=== PATIENT | male | born 1965 | race Caucasian/White ===

== ENCOUNTER 2017-09-02 22:44 | Observation (INO) | payer MEDICAID, OTHER ==
[2017-09-02] MEDS ORDERED: Sodium Chloride 0.9% 2.5 ML Syringe FLUSH PRN (23:06)
[2017-09-02] MEDS ORDERED: Sodium Chloride 0.9% 10 ML Syringe FLUSH PRN (23:06)
[2017-09-02] MEDS ORDERED: Aspirin 81 MG Tab.Chew PO ONE (23:06)
--- NOTE | 2017-09-02 23:11 | EDM.PDOC ---
ED HPI GENERAL MEDICAL PROBLEM - General Chief Complaint: Cardiovascular Problem Stated Complaint: SOB Time Seen by Provider: 09/02/17 22:53 - History of Present Illness INITIAL COMMENTS - FREE TEXT/NARRATIVE: HISTORY AND PHYSICAL: History of present illness: The patient is a 51-year-old male with no stated medical history who presents with an episode of shortness of breath that lasted approximately 5 minutes and occurred approximately 45 minutes ago. According to the patient he is very active on a regular basis and never has chest pain or shortness of breath with activity and he was doing laundry and watching television when he felt like he could not get air in or out for about 5 minutes. He said he has never had an episode like this in the past and has no recent upper respiratory tract infection or any new activities today. He had no chest pain with the episode no abdominal pain no lightheadedness or dizziness but after 5 minutes he started feeling anxious about this because of his father's past medical history. He tells me that his father had CABG 8 done when he was 52 years of age and his grandfather on his father's side also had heart disease. This patient has never had a stress test before and has never had his cholesterol or lipid panel performed. He has no regular provider and he has a history of 20 years of smoking but he has not smoked for the last 1-1/2 months. He says that his been trying to quit and has been very advent about not smoking and today he did have a cigarette. The patient never had nausea vomiting or abdominal pain has been eating and drinking normally. The patient tells me that currently in the ED he is asymptomatic and he feels silly that he came to the ER. He does admit that there was an anxiety component to his shortness of breath but that seemed to kick in after the 5 minutes when he truly was short of breath. Patient denies any chest pain currently and has no leg pain or swelling. For his work he does do a lot of traveling but says he has never had asymmetric leg edema or calf tenderness. The patient did not take any medication prior to coming to the ED. Review of systems: As per history of present illness and below otherwise all systems reviewed and negative. Past medical history: As per history of present illness and as reviewed below otherwise noncontributory. Surgical history: As per history of present illness and as reviewed below otherwise noncontributory. Social history: No reported history of drug or alcohol abuse. Family history: As per history of present illness and as reviewed below otherwise noncontributory. Physical exam: Gen.: Well-developed well-nourished man who is nontoxic and vital signs of been reviewed by me. As I'm speaking with him and evaluating him different parts of the conversation will result in an increase in his heart rate on the monitor which I observed to go as high as 105. He moves all extremities without distress speaks clearly and easily in the ED HEENT: Atraumatic, normocephalic, pupils reactive, negative for conjunctival pallor or scleral icterus, mucous membranes moist, throat clear, neck supple, nontender, trachea midline. Lungs: Clear to auscultation, breath sounds equal bilaterally, chest nontender. No worker breathing or sensory muscle use Heart: S1S2, regular, negative for clicks, rubs, or JVD. Abdomen: Soft, nondistended, nontender. Negative for masses or hepatosplenomegaly. Negative for costovertebral tenderness. Pelvis: Stable nontender. Genitourinary: Deferred. Rectal: Deferred. Extremities: Atraumatic, negative for cords or calf pain. Neurovascular unremarkable. No pedal edema or leg asymmetry Neuro: Awake, alert, oriented. Cranial nerves II through XII unremarkable. Cerebellum unremarkable. Motor and sensory unremarkable throughout. Exam nonfocal. Skin: Normal turgor no evidence of any rashes or lesions overtly and no diaphoresis Diagnostics: EKG CBC CMP INR troponin d-dimer chest x-ray magnesium level Therapeutics: IV O2 monitor aspirin metoprolol XL, Nitropaste 0025: I discussed all testing results with the patient and with our hospitalist Dr. Lilly. We have all decided that the patient merits observation admission and Dr. Lilly would like me to give half an inch of Nitropaste and metoprolol XL 50 mg orally. The patient's blood pressure has persistently stayed at 160s/ 100s. His heart rate has been variable but has not gone over 104 during my evaluation. The patient is aware of my concerns and accepts that and is willing for admission. Impression: Episode of dyspnea, new hypertension, rule out ACS Definitive disposition and diagnosis as appropriate pending reevaluation and review of above. - Related Data Allergies Allergy/AdvReac Type Severity Reaction Status Date / Time No Known Allergies Allergy Verified 09/02/17 23:03 Home Meds: Home Meds . [No Known Home Meds] 07/13/14 [History] Social & Family History - Tobacco Use Smoking Status *Q: Current Every Day Smoker Years of Tobacco use: 15 - Alcohol Use Days Per Week of Alcohol Use: 0 - Recreational Drug Use Recreational Drug Use: No ED ROS GENERAL - Review of Systems Review Of Systems: ROS reveals no pertinent complaints other than HPI. ED EXAM, GENERAL - Physical Exam Exam: See Below (See dictation) Course - Vital Signs Last Recorded V/S: Last Vital Signs Temp 36.2 C 09/02/17 22:49 Pulse 94 09/02/17 23:17 Resp 18 09/02/17 23:17 BP 166/111 H 09/02/17 23:17 Pulse Ox 98 09/02/17 23:17 - Orders/Labs/Meds Orders: Active Orders 24 hr Category Date Time Status Patient Status [ADT] Stat ADT 09/03/17 00:28 Ordered Cardiac Monitoring [RC] . DIRECTED Care 09/02/17 23:05 Active EKG Documentation Completion [RC] STAT Care 09/02/17 23:05 Active Oxygen Therapy, ED [RC] ASDIRECTED Care 09/02/17 23:05 Active Pulse Oximetry [RC] ASDIRECTED Care 09/02/17 23:05 Active Chest 1V Frontal [CR] Stat Exams 09/02/17 23:06 Taken Metoprolol Succinate [Toprol XL] Med 09/03/17 00:30 Once 50 mg PO ONETIME ONE Nitroglycerin [Nitro-Bid 2%] Med 09/03/17 00:28 Once 0.5 gm TOP ONETIME ONE Sodium Chloride 0.9% [Saline Flush] Med 09/02/17 23:06 Active 10 ml FLUSH ASDIRECTED PRN Sodium Chloride 0.9% [Saline Flush] Med 09/02/17 23:06 Active 2.5 ml FLUSH ASDIRECTED PRN Saline Lock Insert [OM.PC] Stat Oth 09/02/17 23:05 Ordered Medication Orders Sodium Chloride (Saline Flush) 10 ml FLUSH ASDIRECTED PRN PRN Reason: Keep Vein Open Sodium Chloride (Saline Flush) 2.5 ml FLUSH ASDIRECTED PRN PRN Reason: Keep Vein Open Labs: Laboratory Tests 09/02/17 09/02/17 09/02/17 Range/Units 22:56 22:56 22:56 WBC 8.88 (4.0-11.0) K/uL RBC 5.20 (4.50-5.90) M/uL Hgb 15.7 (13.0-17.0) g/dL Hct 46.4 (38.0-50.0) % MCV 89.2 (80.0-98.0) fL MCH 30.2 (27.0-32.0) pg MCHC 33.8 (31.0-37.0) g/dL RDW Std Deviation 43.6 (28.0-62.0) fl RDW Coeff of Sharlene 13 (11.0-15.0) % Plt Count 330 (150-400) K/uL MPV 9.20 (7.40-12.00) fL Neut % (Auto) 69.1 (48.0-80.0) % Lymph % (Auto) 22.0 (16.0-40.0) % [place] % (Auto) 7.9 (0.0-15.0) % Eos % (Auto) 0.7 (0.0-7.0) % Baso % (Auto) 0.3 (0.0-1.5) % Neut # (Auto) 6.1 H (1.4-5.7) K/uL Lymph # (Auto) 2.0 (0.6-2.4) K/uL [place] # (Auto) 0.7 (0.0-0.8) K/uL Eos # (Auto) 0.1 (0.0-0.7) K/uL Baso # (Auto) 0.0 (0.0-0.1) K/uL Nucleated RBC % 0.0 /100WBC Nucleated RBCs # 0 K/uL INR 1.01 (0.86-1.11) D-Dimer, Quantitative < 0.19 (0.0-0.52) mg/LFEU Sodium 139 (136-146) mmol/L Potassium 4.0 (3.5-5.1) mmol/L Chloride 105 (98-110) mmol/L Carbon Dioxide 23 (21-31) mmol/L BUN 19 (6.0-23.0) mg/dL Creatinine 1.1 (0.6-1.5) mg/dL Est Cr Clr Drug Dosing 89.79 mL/min Estimated GFR (MDRD) > 60.0 ml/min Glucose 103 (60-110) mg/dL Calcium 9.6 (8.8-10.8) mg/dL Magnesium 1.8 (1.5-2.3) mEq/L Total Bilirubin 0.4 (0.1-1.5) mg/dL AST 23 (5-40) IU/L ALT 29 (8-54) IU/L Alkaline Phosphatase 94 (40-150) Troponin I < 0.10 (0.0-0.29) NG/ML Total Protein 8.6 H (6.0-8.0) g/dL Albumin 4.7 (3.5-5.0) g/dL Globulin 3.9 H (2.0-3.5) g/dL Albumin/Globulin Ratio 1.2 L (1.3-2.8) Meds: Medications Generic Name Dose Route Start Last Admin Trade Name Freq PRN Reason Stop Dose Admin Sodium Chloride 10 ml 09/02/17 23:06 Saline Flush FLUSH ASDIRECTED PRN Keep Vein Open Sodium Chloride 2.5 ml 09/02/17 23:06 Saline Flush FLUSH ASDIRECTED PRN Keep Vein Open Discontinued Medications Generic Name Dose Route Start Last Admin Trade Name Freq PRN Reason Stop Dose Admin Aspirin 324 mg 09/02/17 23:06 09/02/17 23:16 Aspirin PO 09/02/17 23:07 324 mg ONETIME ONE Administration Departure - Departure Time of Disposition: 00:32 Disposition: Refer to Observation Reason for Transfer *Q: Primary PCI Indicated Condition: Good Clinical Impression: Dyspnea Qualifiers: Dyspnea type: other forms of dyspnea Qualified Code(s): R06.09 - Other forms of dyspnea Hypertension Qualifiers: Hypertension type: unspecified Qualified Code(s): I10 - Essential (primary) hypertension Referrals: PCP,None [Primary Care Provider] - Forms: ED Department Discharge - My Orders Last 24 Hours: My Active Orders 09/02/17 23:05 Cardiac Monitoring [RC] . DIRECTED EKG Documentation Completion [RC] STAT Oxygen Therapy, ED [RC] ASDIRECTED Pulse Oximetry [RC] ASDIRECTED Saline Lock Insert [OM.PC] Stat 09/02/17 23:06 Chest 1V Frontal [CR] Stat Sodium Chloride 0.9% [Saline Flush] 10 ml FLUSH ASDIRECTED PRN Sodium Chloride 0.9% [Saline Flush] 2.5 ml FLUSH ASDIRECTED PRN 09/03/17 00:28 Patient Status [ADT] Stat Nitroglycerin [Nitro-Bid 2%] 0.5 gm TOP ONETIME ONE 09/03/17 00:30 Metoprolol Succinate [Toprol XL] 50 mg PO ONETIME ONE - Assessment/Plan Last 24 Hours: My Active Orders 09/02/17 23:05 Cardiac Monitoring [RC] . DIRECTED EKG Documentation Completion [RC] STAT Oxygen Therapy, ED [RC] ASDIRECTED Pulse Oximetry [RC] ASDIRECTED Saline Lock Insert [OM.PC] Stat 09/02/17 23:06 Chest 1V Frontal [CR] Stat Sodium Chloride 0.9% [Saline Flush] 10 ml FLUSH ASDIRECTED PRN Sodium Chloride 0.9% [Saline Flush] 2.5 ml FLUSH ASDIRECTED PRN 09/03/17 00:28 Patient Status [ADT] Stat Nitroglycerin [Nitro-Bid 2%] 0.5 gm TOP ONETIME ONE 09/03/17 00:30 Metoprolol Succinate [Toprol XL] 50 mg PO ONETIME ONE
[2017-09-02 23:29] LABS: CHLORIDE,CL 105 mmol/L (98-110); SODIUM,NA 139 mmol/L (136-146)
[2017-09-03] MEDS ORDERED: Nitroglycerin 2% Oint 1 GM UD Packet TOP ONE (00:28)
[2017-09-03] MEDS ORDERED: Metoprolol Succinate 50 MG Tab.ER PO ONE (00:30)
[2017-09-03] MEDS ORDERED: LORazepam 0.5 MG Tab PO PRN (01:14)
[2017-09-03] MEDS ORDERED: Albuterol/Ipratropium 3.0-0.5 MG/3 ML Neb Soln NEB PRN (01:14)
[2017-09-03] MEDS ORDERED: Sodium Chloride 0.9% 2.5 ML Syringe FLUSH PRN (01:14)
[2017-09-03] MEDS ORDERED: Nitroglycerin 2% Oint 1 GM UD Packet TOP SCH (01:15)
[2017-09-03] MEDS ORDERED: Acetaminophen 325 MG Tab PO PRN (04:21)
[2017-09-03] MEDS ORDERED: Acetaminophen 325 MG Tab ONE (04:37)
[2017-09-03] MEDS ORDERED: Metoprolol Succinate 50 MG Tab.ER PO SCH (09:00)
[2017-09-03] MEDS ORDERED: Aspirin 81 MG Tab.EC PO SCH (09:00)
--- NOTE | 2017-09-03 09:50 | PCM.HP ---
H&P History of Present Illness - General Date of Service: 09/03/17 Admit Problem/Dx: Admission Diagnosis/Problem Admission Diagnosis/Problem Dyspnea Source of Information: Patient - History of Present Illness Initial Comments - Free Text/Narative: 51-year-old male otherwise healthy admitted for rule out ACS. He presented with an episode of shortness of breath that lasted approximately 5 minutes and occurred approximately 45 minutes ago while doing laundry at home. According to the patient he is very active on a regular basis and never has chest pain or shortness of breath with activity and he was doing laundry and watching television when he felt like he could not get air in or out for about 5 minutes. He said he has never had an episode like this in the past and has no recent upper respiratory tract infection or any new activities today. He had no chest pain with the episode no abdominal pain no lightheadedness or dizziness but after 5 minutes he started feeling anxious about this because of his father' s past medical history. He tells me that his father had CABG 8 done when he was 52 years of age and his grandfather on his father's side also had heart disease. This patient has never had a stress test before and has never had his cholesterol or lipid panel performed. He has no regular provider and he has a history of 20 years of smoking but he has not smoked for the last two months. He says that his been trying to quit and has been very worship about not smoking and today he did have a cigarette. The patient never had nausea vomiting or abdominal pain has been eating and drinking normally. In the ED, EKG , CXR< D- dimer negative, troponin x1 negative. He was given aspirin and Lopressor due to elevated blood pressure. He is admitted to rule of ACS. - Related Data Allergies/Adverse Reactions: Allergies Allergy/AdvReac Type Severity Reaction Status Date / Time No Known Allergies Allergy Verified 09/03/17 02:28 Home Medications: Home Meds Aspirin [Halfprin] 81 mg PO DAILY #30 tab.ec 09/03/17 [Rx] Metoprolol Succinate [Toprol XL] 50 mg PO DAILY #30 tab.er 09/03/17 [Rx] Past Medical History - Past Health History Medical/Surgical History: Denies Medical/Surgical History Social & Family History - Family History Cardiac: Reports: [place] Respiratory: Reports: Asthma Oncologic: Reports: Brain, Lung - Tobacco Use Smoking Status *Q: Former Smoker Years of Tobacco use: 20 Packs/Tins Daily: 1 Used Tobacco, but Quit: Yes Month Tobacco Last Used: June 2017 Second Hand Smoke Exposure: No - Caffeine Use Caffeine Use: Reports: Coffee - Alcohol Use Days Per Week of Alcohol Use: 4 Number of Drinks Per Day: 2 Total Drinks Per Week: 8 Date of Last Drink: 09/02/17 Time of Last Drink: 20:00 - Recreational Drug Use Recreational Drug Use: No H&P Review of Systems - Review of Systems: Review Of Systems: See Below General: Reports: No Symptoms HEENT: Reports: No Symptoms Pulmonary: Reports: No Symptoms Cardiovascular: Reports: No Symptoms Gastrointestinal: Reports: No Symptoms Musculoskeletal: Reports: No Symptoms Skin: Reports: No Symptoms Psychiatric: Reports: No Symptoms Neurological: Reports: No Symptoms Exam - Exam Exam: See Below - Vital Signs Vital Signs: Last Vital Signs Temp 97.2 F 09/03/17 08:00 Pulse 71 09/03/17 08:51 Resp 18 09/03/17 08:00 BP 123/81 09/03/17 08:51 Pulse Ox 95 09/03/17 08:00 Weight: 82.4 kg - Exam General: Alert, Oriented HEENT: Conjunctiva Clear, EOMI Neck: Supple, Trachea Midline Lungs: Clear to Auscultation, Normal Respiratory Effort Cardiovascular: Regular Rate, Regular Rhythm GI/Abdominal Exam: Normal Bowel Sounds, Soft Back Exam: Normal Inspection Extremities: Normal Inspection Skin: Warm, Dry, Intact Neurological: Cranial Nerves Intact Psychiatric: Alert, Normal Affect, Normal Mood - Patient Data Lab Results Last 24 hrs: Laboratory Results - last 24 hr 09/03/17 09/03/17 Range/Units 04:42 04:42 Troponin I < 0.10 (0.0-0.29) NG/ML Triglycerides 69 (10-190) mg/dL Cholesterol 217 (131-240) mg/dL LDL Cholesterol, Calc 153 (60-180) mg/dL VLDL Cholesterol 14 (5-55) mg/dL HDL Cholesterol 50 (40-80) mg/dL Cholesterol/HDL Ratio 4.3 (3.3-6.0) Result Diagrams: 09/02/17 22:56 09/02/17 22:56 *Q Meaningful Use (ADM) - VTE *Q VTE Criteria *Q: - Stroke *Q Stroke Criteria *Q: - AMI *Q AMI Criteria *Q: Problem List Initiated/Reviewed/Updated: Yes Orders Last 24hrs: Active Orders 24 hr Category Date Time Status RT Aerosol Therapy [RC] ASDIRECTED Care 09/03/17 01:19 Active Telemetry Monitoring [Cardiac Monitoring] [RC] Q8H Care 09/03/17 00:40 Active Regular Diet [DIET] Diet 09/03/17 Breakfast Active TROPONIN I [CHEM] Q6H Lab 09/03/17 11:00 Ordered Acetaminophen [Tylenol] Med 09/03/17 04:37 Once 650 mg .ROUTE .STK-MED ONE Acetaminophen [Tylenol] Med 09/03/17 04:21 Active 650 mg PO Q4H PRN Albuterol/Ipratropium [DuoNeb 3.0-0.5 MG/3 ML] Med 09/03/17 01:14 Active 3 ml NEB Q4HRRT PRN Aspirin [Halfprin] Med 09/03/17 09:00 Active 81 mg PO DAILY LORazepam [Ativan] Med 09/03/17 01:14 Active 0.5 mg PO Q6H PRN Metoprolol Succinate [Toprol XL] Med 09/03/17 09:00 Active 50 mg PO DAILY Sodium Chloride 0.9% [Saline Flush] Med 09/03/17 01:14 Active 2.5 ml FLUSH ASDIRECTED PRN Code Status [Resuscitation Status] Routine Resus Stat 09/03/17 01:26 Ordered Medication Orders Acetaminophen (Tylenol) 650 mg PO Q4H PRN PRN Reason: Pain Albuterol/Ipratropium (Duoneb 3.0-0.5 Mg/3 Ml) 3 ml NEB Q4HRRT PRN PRN Reason: Wheezing Aspirin (Halfprin) 81 mg PO DAILY [facility] Last Admin: 09/03/17 08:51 Dose: 81 mg Lorazepam (Ativan) 0.5 mg PO Q6H PRN PRN Reason: Anxiety Metoprolol Succinate (Toprol Xl) 50 mg PO DAILY [facility] Last Admin: 09/03/17 08:51 Dose: 50 mg Sodium Chloride (Saline Flush) 10 ml FLUSH ASDIRECTED PRN PRN Reason: Keep Vein Open Sodium Chloride (Saline Flush) 2.5 ml FLUSH ASDIRECTED PRN PRN Reason: Keep Vein Open Sodium Chloride (Saline Flush) 2.5 ml FLUSH ASDIRECTED PRN PRN Reason: Keep Vein Open Assessment/Plan Comment:: 51 yo male admitted for r/o ACS Monitor on tele, troponin x3 negative. Discharge summary 51 yo male admitted for SOB and rule out ACS. EKG and CXR along with troponin x 3 negative. Lipid panel shows cholestrol 217, LDL 153, HDL 50, TG 69. LFT within normal. He does not have chest pain or sob. He is discharged with asa 81 mg po qd and lopressor xl 50 mg qd. Since he travels frequently and resides in [place]. He is to establish a PCP and have outpatient stess test. He agreed.
--- NOTE | 2017-09-03 10:33 | CR ---
EXAM DATE: 09/03/17 PATIENT'S AGE: 51 Patient: ARABELLA HERNÁNDEZ Facility: [place], [place] Site . Site : 1965 Study: XRay Chest [id number] 11:34:01 PM Ordering Physician: Guy Galindo Final Report: INDICATION: Shortness of breath TECHNIQUE: Chest 1 view COMPARISON: None FINDINGS: Cardiovascular and mediastinum: Heart size and vasculature are normal in caliber and appearance. Mediastinum is within normal limits. Lungs and pleural space: No focal consolidation. No sign of pleural effusion. No pneumothorax. Bones and soft tissues: No significant findings. IMPRESSION: No acute cardiopulmonary disease. Dictated by Rogelio Hess MD @ 09/02/2017 11:39:47 PM Dictated by: Rogelio Hess MD @ 09/02/2017 23:39:58 (Electronic Signature) Report Signed by Proxy. [facility]ITAL[facility]
== END 2017-09-03 12:53 | disposition home or self-care (01) ==
LOC: MW.ED 22:44 → MW.MS 09-03 00:28
PROVIDERS: ADMIT Family Medicine; ATTEND Family Medicine
DX: R06.02 Shortness of breath (principal); F17.210 Nicotine dependence, cigarettes, uncomplicated; Z79.82 Long term (current) use of aspirin; Z79.899 Other long term (current) drug therapy
CPT/HCPCS: 36415; 71010; 80053; 80061; 83735; 84484; 85025; 85379; 85610; 93005; 99285; A9270; G0378

== ENCOUNTER 2018-01-24 23:01 | Emergency (ER) | payer MEDICAID, OTHER ==
--- NOTE | 2018-01-24 23:19 | EDM.PDOC ---
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 Past medical history: As per history of present illness and as reviewed below otherwise noncontributory. Surgical history: As per history of present illness and as reviewed below otherwise noncontributory. Social history: No reported history of drug or alcohol abuse. Family history: As per history of present illness and as reviewed below otherwise noncontributory. Physical exam: HEENT: Atraumatic, normocephalic, pupils reactive, negative for conjunctival pallor or scleral icterus, mucous membranes moist, throat clear, neck supple, nontender, trachea midline. Lungs: Clear to auscultation, breath sounds equal bilaterally, chest nontender. Heart: S1S2, regular, negative for clicks, rubs, or JVD. Abdomen: Soft, nondistended, nontender. Negative for masses or hepatosplenomegaly. Negative for costovertebral tenderness. Pelvis: Stable nontender. Genitourinary: Deferred. Rectal: Deferred. Extremities: Atraumatic, negative for cords or calf pain. Neurovascular unremarkable. Neuro: Awake, alert, oriented. Cranial nerves II through XII unremarkable. Cerebellum unremarkable. Motor and sensory unremarkable throughout. Exam nonfocal. Diagnostics: None Therapeutics: None Impression: #1 medically clear for incarceration Definitive disposition and diagnosis as appropriate pending reevaluation and review of above. - Related Data Allergies Allergy/AdvReac Type Severity Reaction Status Date / Time No Known Allergies Allergy Verified 09/03/17 02:28 Home Meds: Home Meds Aspirin [Halfprin] 81 mg PO DAILY #30 tab.ec 09/03/17 [Rx] Metoprolol Succinate [Toprol XL] 50 mg PO DAILY #30 tab.er 09/03/17 [Rx] Past Medical History - Past Health History Medical/Surgical History: Denies Medical/Surgical History Social & Family History - Family History Cardiac: Reports: [place] Respiratory: Reports: Asthma Oncologic: Reports: Brain, Lung - Tobacco Use Smoking Status *Q: Former Smoker Years of Tobacco use: 20 Packs/Tins Daily: 1 Used Tobacco, but Quit: Yes Month/Year Tobacco Last Used: June 2017 Second Hand Smoke Exposure: No - Caffeine Use Caffeine Use: Reports: Coffee - Alcohol Use Days Per Week of Alcohol Use: 4 Number of Drinks Per Day: 2 Total Drinks Per Week: 8 - Recreational Drug Use Recreational Drug Use: No ED ROS GENERAL - Review of Systems Review Of Systems: ROS reveals no pertinent complaints other than HPI. ED EXAM, GENERAL - Physical Exam Exam: See Below (See dictation) Departure - Departure Time of Disposition: 23:18 Disposition: Home, Self-Care 01 Condition: Good Clinical Impression: Medical clearance for incarceration - Discharge Information Referrals: PCP,None [Primary Care Provider] - Additional Instructions: The following information is given to patients seen in the emergency department who are being discharged to home. This information is to outline your options for follow-up care. We provide all patients seen in our emergency department with a follow-up referral. The need for follow-up, as well as the timing and circumstances, are variable depending upon the specifics of your emergency department visit. If you don't have a primary care physician on staff, we will provide you with a referral. We always advise you to contact your personal physician following an emergency department visit to inform them of the circumstance of the visit and for follow-up with them and/or the need for any referrals to a consulting specialist. The emergency department will also refer you to a specialist when appropriate. This referral assures that you have the opportunity for followup care with a specialist. All of these measure are taken in an effort to provide you with optimal care, which includes your followup. Under all circumstances we always encourage you to contact your private physician who remains a resource for coordinating your care. When calling for followup care, please make the office aware that this follow-up is from your recent emergency room visit. If for any reason you are refused follow-up, please contact the [facility] emergency department at and asked to speak to the emergency department charge nurse. Continue current medications follow primary medical doctor as needed as discussed return as needed as discussed
== END 2018-01-24 23:27 | disposition home or self-care (01) ==
LOC: MW.ED 23:01
DX: Z02.89 Encounter for other administrative examinations (principal); Z79.82 Long term (current) use of aspirin; Z79.899 Other long term (current) drug therapy; Z87.891 Personal history of nicotine dependence
CPT/HCPCS: 99282

== ENCOUNTER 2019-01-10 10:49 | Emergency (ER) | payer SELFPAY ==
--- NOTE | 2019-01-10 11:23 | EDM.PDOC ---
ED HPI GENERAL MEDICAL PROBLEM - General Chief Complaint: General Stated Complaint: MED CLEAR Time Seen by Provider: 01/10/19 11:19 Source of Information: Reports: Patient History Limitations: Reports: No Limitations - History of Present Illness INITIAL COMMENTS - FREE TEXT/NARRATIVE: HISTORY AND PHYSICAL: History of present illness: Patient is a 53-year-old male who is brought to the emergency room by law enforcement requesting medical clearance. Patient does have a history of hypertension and does take medications routinely, states he is compliant with this medication regimen. He currently offers no concerns or complaints and does not wish to have a medical screening done today. He is cooperative with my physical examination patient declines the need for any diagnostics. Patient denies any fever, chills, headache, change in vision, syncope or near syncope. Denies any chest pain, back pain, shortness of breath or cough. Denies any abdominal pain, nausea, vomiting, diarrhea, constipation or dysuria. Has not noted any blood in urine or stool. Patient has been eating and drinking appropriately. Review of systems: As per history of present illness and below otherwise all systems reviewed and negative. Past medical history: As per history of present illness and as reviewed below otherwise noncontributory. Surgical history: As per history of present illness and as reviewed below otherwise noncontributory. Social history: See social history for further information Family history: As per history of present illness and as reviewed below otherwise noncontributory. Physical exam: General: Well-developed and well-nourished 53-year-old male. Alert and oriented. Nontoxic appearing and in no acute distress. HEENT: Atraumatic, normocephalic, pupils equal and reactive bilaterally, negative for conjunctival pallor or scleral icterus, mucous membranes moist, neck supple, nontender, trachea midline. No drooling or trismus noted. No meningeal signs. No hot potato voice noted. Lungs: Clear to auscultation, breath sounds equal bilaterally, chest nontender. Heart: S1S2, regular rate and rhythm without overt murmur Abdomen: Soft, nondistended, nontender. Negative for costovertebral tenderness. Pelvis: Stable nontender. Genitourinary: Deferred. Rectal: Deferred. Skin: Intact, warm, dry. No lesions or rashes noted. Extremities: Atraumatic, moves all extremities per self with difficulty or deficits, negative for cords or calf pain. Neurovascular unremarkable. Neuro: Awake, alert, oriented. Cranial nerves II through XII unremarkable. Cerebellum unremarkable. Motor and sensory unremarkable throughout. Exam nonfocal. Notes: Vital signs have been reviewed by me. Patient declines the need for any further workup. He states he is compliant with his medications and does have these readily available to him, does not require any further refills. Supportive care measures were reviewed and discussed. Voices understanding and is agreeable to plan of care. Denies any further questions or concerns at this time. Diagnostics: Declines Therapeutics: Declines Prescription: None Impression: Encounter for medical screening Plan: 1. Take your home medications as prescribed. 2. Follow-up with your primary caregiver and as needed and as directed. Return to the ED as needed and as discussed. Definitive disposition and diagnosis as appropriate pending reevaluation and review of above. - Related Data Allergies Allergy/AdvReac Type Severity Reaction Status Date / Time No Known Allergies Allergy Verified 01/10/19 11:14 Home Meds: Home Meds Metoprolol Succinate [Toprol XL] 50 mg PO DAILY #30 tab.er 09/03/17 [Rx] Past Medical History - Past Health History Medical/Surgical History: Denies Medical/Surgical History Cardiovascular History: Reports: Hypertension - Infectious Disease History Infectious Disease History: Reports: Chicken Pox Social & Family History - Family History Family Medical History: Noncontributory Cardiac: Reports: [place], [place] Respiratory: Reports: Asthma Oncologic: Reports: Brain, Lung - Tobacco Use Smoking Status *Q: Current Every Day Smoker Years of Tobacco use: 1 Packs/Tins Daily: 20 - Caffeine Use Caffeine Use: Reports: Coffee, Energy Drinks, Soda, Tea - Recreational Drug Use Recreational Drug Use: No ED ROS GENERAL - Review of Systems Review Of Systems: ROS reveals no pertinent complaints other than HPI. ED EXAM, GENERAL - Physical Exam Exam: See Below (See dictation) Course - Vital Signs Last Recorded V/S: Last Vital Signs Temp 97.0 F 01/10/19 11:12 Pulse 86 01/10/19 11:12 Resp 18 01/10/19 11:12 BP 130/84 01/10/19 11:12 Pulse Ox 94 L 01/10/19 11:12 Departure - Departure Time of Disposition: 11:22 Disposition: Home, Self-Care 01 Clinical Impression: Encounter for medical screening examination - Discharge Information Instructions: Medical Screening Exam Referrals: PCP,Unknown [Primary Care Provider] - Forms: ED Department Discharge Additional Instructions: The following information is given to patients seen in the emergency department who are being discharged to home. This information is to outline your options for follow-up care. We provide all patients seen in our emergency department with a follow-up referral. The need for follow-up, as well as the timing and circumstances, are variable depending upon the specifics of your emergency department visit. If you don't have a primary care physician on staff, we will provide you with a referral. We always advise you to contact your personal physician following an emergency department visit to inform them of the circumstance of the visit and for follow-up with them and/or the need for any referrals to a consulting specialist. The emergency department will also refer you to a specialist when appropriate. This referral assures that you have the opportunity for follow-up care with a specialist. All of these measure are taken in an effort to provide you with optimal care, which includes your follow-up. Under all circumstances we always encourage you to contact your private physician who remains a resource for coordinating your care. When calling for follow-up care, please make the office aware that this follow-up is from your recent emergency room visit. If for any reason you are refused follow-up, please contact the [facility] Emergency Department at and asked to speak to the emergency department charge nurse. [facility] [address] [place] [id number] [facility] [address] [place] [id number] 1. Continue to take your home medications as prescribed. 2. Follow-up with your primary caregiver and as needed and as directed. Return to the ED as needed and as discussed.
== END 2019-01-10 11:28 | disposition home or self-care (01) ==
LOC: MW.ED 10:49
DX: Z13.9 Encounter for screening, unspecified (principal); I10 Essential (primary) hypertension; F17.210 Nicotine dependence, cigarettes, uncomplicated; Z79.899 Other long term (current) drug therapy
CPT/HCPCS: 99282